=== PATIENT | male | born 1935 | race American Indian/Alaskan Native ===

== ENCOUNTER 2017-04-13 09:53 | Emergency (ER) | payer OTHER ==
[2017-04-13 10:24] VITALS: BP 140/71
[2017-04-13] MEDS ORDERED: MOTRIN PO ONE (11:27)
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
== END 2017-04-13 12:45 | disposition home or self-care (01) ==
LOC: ED 09:53
DX: M54.5 Low back pain (principal); M25.512 Pain in left shoulder; M79.1 Myalgia; F17.200 Nicotine dependence, unspecified, uncomplicated; V49.49XA Driver injured in collision with other motor vehicles in traffic accident, initial encounter; Y93.89 Activity, other specified; Y92.89 Other specified places as the place of occurrence of the external cause; Y99.8 Other external cause status
CPT/HCPCS: 72131